=== PATIENT | female | born 1955 | race American Indian/Alaskan Native ===

== ENCOUNTER 2020-12-27 21:11 | Inpatient (IN) | payer MEDICARE ==
[2020-12-27] MEDS ORDERED: SODIUM CHLORIDE 0.9% 1000 ML 1,000 ML IV ONE (22:29)
--- NOTE | 2020-12-27 22:32 | Emergency Department Report ---
ED General Adult HPI - General Chief complaint: Syncope Stated complaint: AMS PUI?: No Time Seen by Provider: 12/27/20 21:58 Source: family, EMS ( EMS documentation not available at time of chart dictation ), RN notes reviewed Mode of arrival: Stretcher Limitations: Altered Mental Status, Physical Limitation - History of Present Illness Initial comments: The patient is a 65-year-old female. She is not known to myself previously. She is accompanied by her daughter, Ms. Anjelica Mauricio who provides the history of present illness; [id number] Past medical history: COPD, not on home oxygen, hypertension, pancreatic mass. Pulmonology: Dr. Agg[facility], Dr. Kenny As per her daughter, the patient has been weak, and failing to thrive for the past few months. She is essentially bedbound, and stationary. She reports that her outpatient gymnastics coach performed a few procedures recently, but Ms. Mauricio cannot specifically remember what was done. The patient was found facedown on the floor tonight, for uncertain duration of time, and via uncertain mechanism. The patient herself is awake, but altered, moves 4 extremities, and make some nonsensical statements. As per her daughter, the patient has had a decline in functional status over the past few months. Her daughter states that she is the patient's power of international tax manager, and that currently the patient is full code. Patient herself is not able to describe the qualitative nature of her symptoms, exacerbating factors, relieving factors, or aggravating factors. Her daughter does state that the patient has very poor oral intake, and has not really been able to eat or drink much of anything for months. -: Sudden, month(s) Severity scale (0 -10): 3 Quality: other Consistency: other Improves with: other Worsens with: other Associated Symptoms: other - Related Data Allergies Allergy/AdvReac Type Severity Reaction Status Date / Time Penicillins Allergy Swelling Verified 12/27/20 21:38 ED Review of Systems ROS: Stated complaint: AMS Other details as noted in HPI Comment: Unobtainable due to pts medical conditions Constitutional: malaise, weakness Cardiovascular: syncope Gastrointestinal: other (Not able to tolerate p.o.) Neurological: weakness, confusion ED Past Medical Hx - Past Medical History Previous Medical History?: Yes Hx Hypertension: Yes Hx COPD: Yes Additional medical history: Unknown mass on Pancreas - Surgical History Past Surgical History?: No ED Physical Exam - General Limitations: Altered Mental Status, Physical Limitation General appearance: lethargic - Head Head exam: Present: normocephalic, other (Cachectic. Wasted.) - Eye Eye exam: Present: normal appearance - ENT ENT exam: Present: mucous membranes dry - Neck Neck exam: Present: normal inspection. Absent: tenderness, meningismus - Respiratory Respiratory exam: Present: decreased breath sounds. Absent: respiratory distress, wheezes, rales, rhonchi, stridor - Cardiovascular Cardiovascular Exam: Present: normal rhythm, tachycardia, normal heart sounds. Absent: bradycardia, irregular rhythm, systolic murmur, diastolic murmur, rubs, gallop - GI/Abdominal GI/Abdominal exam: Present: soft, other (Scaphoid abdomen is noted.). Absent: distended, tenderness, guarding, rebound, rigid, pulsatile mass - Extremities Exam Extremities exam: Present: normal inspection, other (Hyperpigmentation noted. Dry skin is noted.) - Back Exam Back exam: Present: normal inspection. Absent: tenderness, CVA tenderness (R), paraspinal tenderness, vertebral tenderness - Neurological Exam Neurological exam: Present: altered (Detailed neurologic examination limited secondary to patient's encephalopathy), other (The patient is awake. The patient is moaning. patient has minimal movement of her extremities.) - Skin Skin exam: Present: warm, dry. Absent: rash ED Course Vital Signs 12/27/20 12/27/20 12/27/20 21:28 21:32 22:00 Temperature 96.7 F L Pulse Rate 109 H 106 H 110 H Respiratory 26 H 23 14 Rate Blood Pressure 106/44 [Right] O2 Sat by Pulse 100 Oximetry 12/27/20 12/27/20 12/28/20 22:56 23:00 00:10 Temperature Pulse Rate 113 H 106 H 109 H Respiratory 29 H 19 Rate Blood Pressure [Right] O2 Sat by Pulse Oximetry 12/28/20 00:56 Temperature Pulse Rate Respiratory Rate Blood Pressure 115/56 [Right] O2 Sat by Pulse Oximetry - Reevaluation(s) Reevaluation #1: 12/28/20 00:38 Differential diagnosis, including but not limited to: Dehydration, pneumonia, urinary tract infection, closed head injury. Cervical spine injury, failure to thrive, malignancy, electrolyte derangement Assessment and plan: 65-year-old female who appears to be chronically ill, wasted, emaciated, who has been weak for months as per her daughter, who is currently a full code, with complaint of fall, weakness, possible syncope. Patient hypothermic and tachycardic. Active patient rewarming started. She is reportedly allergic to penicillin, uncertain what the specific nature of her allergy is. Start patient on fluids, empiric levofloxacin, obtain CT scan of the brain and cervical spine, as well as x-ray of the chest, and pelvis. Laboratory studies have demonstrated leukocytosis, lactic acidosis, hyponatremia (likely hypovolemic hyponatremia), elevated troponin, likely a type II troponin leak (initial EKG limited by artifact, have requested repeat EKG), elevated lactic acid, which is likely a type I and type II lactic acidosis, as well as renal insufficiency. I did have an extensive discussion with the patient's daughter regarding CPR, intubation, and goals of care. Currently, she has articulated understanding to the aforementioned interventions, and has requested full CODE STATUS. The patient does not require vasopressors at this time, and she is protecting her airway. I do suspect that the patient has an undiagnosed malignancy. Patient meets criteria for admission hospitalization secondary to the aforementioned findings. Continue IV fluids, continue potassium supplementation, administer lactulose rectally for hyperammonemia, admit patient to the medical service. This was discussed with the patient's daughter, who articulated understanding. 12/28/20 00:41 CT scan of the brain and cervical spine negative for acute findings. Hospital physician, Dr. Alessandro Contreras to admit 12/28/20 01:07 Called daughters listed phone number to discuss patient's care. There was no answer, and no voicemail. ED Medical Decision Making - Lab Data Result diagrams: 12/27/20 23:35 12/27/20 23:35 Vital Signs 12/27/20 12/27/20 21:32 22:56 Temperature 96.7 F L Pulse Rate 106 H 113 H Respiratory 23 Rate Blood Pressure 106/44 [Right] O2 Sat by Pulse 100 Oximetry Lab Results 12/27/20 12/27/20 12/27/20 Range/Units 23:35 23:35 23:35 WBC 18.0 H (4.5-11.0) K/mm3 RBC 3.11 L (3.65-5.03) M/mm3 Hgb 10.1 (10.1-14.3) gm/dl Hct 29.7 L (30.3-42.9) % MCV 96 (79-97) fl MCH 32 (28-32) pg MCHC 34 (30-34) % RDW 14.0 (13.2-15.2) % Plt Count 261 (140-440) K/mm3 Seg Neutrophils % Extracting Machine Operator PT 13.4 (12.2-14.9) Sec. INR 0.96 (0.87-1.13) APTT 29.1 (24.2-36.6) Sec. Sodium 130 L (137-145) mmol/L Potassium 1.8 L* (3.6-5.0) mmol/L Chloride 76.1 L (98-107) mmol/L Carbon Dioxide 26 (22-30) mmol/L Anion Gap 30 mmol/L BUN 36 H (7-17) mg/dL Creatinine 1.8 H (0.6-1.2) mg/dL Estimated GFR 34 ml/min BUN/Creatinine Ratio 20 % Glucose 98 (65-100) mg/dL Lactic Acid (0.7-2.0) mmol/L Calcium 7.9 L (8.4-10.2) mg/dL Total Bilirubin 1.00 (0.1-1.2) mg/dL AST 38 (5-40) units/L ALT 24 (7-56) units/L Alkaline Phosphatase 90 (35-129) units/L Ammonia (25-60) umol/L Total Creatine Kinase 217 H (30-135) units/L Troponin T 0.163 H* (0.00-0.029) ng/mL Total Protein 5.0 L (6.3-8.2) g/dL Albumin 2.1 L (3.9-5) g/dL Albumin/Globulin Ratio 0.7 % TSH (0.270-4.200) mlU/mL Salicylates (2.8-20.0) mg/dL Acetaminophen (10.0-30.0) ug/mL Plasma/Serum Alcohol (0-0.07) % 12/27/20 12/27/20 12/27/20 Range/Units 23:35 23:35 23:35 WBC (4.5-11.0) K/mm3 RBC (3.65-5.03) M/mm3 Hgb (10.1-14.3) gm/dl Hct (30.3-42.9) % MCV (79-97) fl MCH (28-32) pg MCHC (30-34) % RDW (13.2-15.2) % Plt Count (140-440) K/mm3 Seg Neutrophils % PT (12.2-14.9) Sec. INR (0.87-1.13) APTT (24.2-36.6) Sec. Sodium (137-145) mmol/L Potassium (3.6-5.0) mmol/L Chloride (98-107) mmol/L Carbon Dioxide (22-30) mmol/L Anion Gap mmol/L BUN (7-17) mg/dL Creatinine (0.6-1.2) mg/dL Estimated GFR ml/min BUN/Creatinine Ratio % Glucose (65-100) mg/dL Lactic Acid 8.90 H* (0.7-2.0) mmol/L Calcium (8.4-10.2) mg/dL Total Bilirubin (0.1-1.2) mg/dL AST (5-40) units/L ALT (7-56) units/L Alkaline Phosphatase (35-129) units/L Ammonia 101.0 H (25-60) umol/L Total Creatine Kinase (30-135) units/L Troponin T (0.00-0.029) ng/mL Total Protein (6.3-8.2) g/dL Albumin (3.9-5) g/dL Albumin/Globulin Ratio % TSH 3.690 (0.270-4.200) mlU/mL Salicylates (2.8-20.0) mg/dL Acetaminophen (10.0-30.0) ug/mL Plasma/Serum Alcohol (0-0.07) % 12/27/20 12/27/20 12/27/20 Range/Units 23:35 23:35 23:35 WBC (4.5-11.0) K/mm3 RBC (3.65-5.03) M/mm3 Hgb (10.1-14.3) gm/dl Hct (30.3-42.9) % MCV (79-97) fl MCH (28-32) pg MCHC (30-34) % RDW (13.2-15.2) % Plt Count (140-440) K/mm3 Seg Neutrophils % PT (12.2-14.9) Sec. INR (0.87-1.13) APTT (24.2-36.6) Sec. Sodium (137-145) mmol/L Potassium (3.6-5.0) mmol/L Chloride (98-107) mmol/L Carbon Dioxide (22-30) mmol/L Anion Gap mmol/L BUN (7-17) mg/dL Creatinine (0.6-1.2) mg/dL Estimated GFR ml/min BUN/Creatinine Ratio % Glucose (65-100) mg/dL Lactic Acid (0.7-2.0) mmol/L Calcium (8.4-10.2) mg/dL Total Bilirubin (0.1-1.2) mg/dL AST (5-40) units/L ALT (7-56) units/L Alkaline Phosphatase (35-129) units/L Ammonia (25-60) umol/L Total Creatine Kinase (30-135) units/L Troponin T (0.00-0.029) ng/mL Total Protein (6.3-8.2) g/dL Albumin (3.9-5) g/dL Albumin/Globulin Ratio % TSH (0.270-4.200) mlU/mL Salicylates < 0.3 L (2.8-20.0) mg/dL Acetaminophen 5.0 L (10.0-30.0) ug/mL Plasma/Serum Alcohol < 0.01 (0-0.07) % - EKG Data -: EKG Interpreted by Ks - EKG Data 12/28/20 00:33 EKG limited by motion artifact. Sinus rhythm, tachycardia, rate 105 bpm. Unable to establish axis, given motion artifact. Atrial enlargement. Poor R wave progression. Nonspecific ST abnormality. Not a STEMI. 12/28/20 00:34 - Radiology Data Radiology results: pending, report reviewed, image reviewed XR pelvis 1-2V INDICATION / CLINICAL INFORMATION: fall weak. COMPARISON: None available. FINDINGS: No acute fracture. Normal alignment. Joint spaces are preserved. No destructive osseous lesion or suspicious periosteal reaction. Impression: 1.No acute fracture. Signer Name: Miguel Ángel Mcclain MD Signed: 12/27/2020 10:10 PM Workstation Name: [id number] XR chest 1V ap INDICATION / CLINICAL INFORMATION: Altered Mental Status COMPARISON: None available. FINDINGS: SUPPORT DEVICES: None. HEART / MEDIASTINUM: No significant abnormality. LUNGS / PLEURA: Lungs are clear. Costo phrenic sulci are sharp. No pneumothorax. ADDITIONAL FINDINGS: No significant additional findings. IMPRESSION: 1. No acute findings. Signer Name: Miguel Ángel Mcclain MD Signed: 12/27/2020 10:08 PM Workstation Name: [id number] XR chest 1V ap INDICATION / CLINICAL INFORMATION: Altered Mental Status RAJINDER RISON: None available. FINDINGS: SUPPORT DEVICES: None. HEART / MEDIASTINUM: No significant abnormality. LUNGS / PLEURA: Lungs are clear. Costophrenic sulci are sharp. No pneumothorax. ADDITIONAL FINDINGS: No significant additional findings. IMPRESSION: 1. No acute findings. Signer Name: Miguel Ángel Mcclain MD Signed: 12/27/2020 10:08 PM Workstation Name: [id number] CT cervical spine wo con, CT head/brain wo con INDICATION: Syncope / Weakness / Altered Mental Status. TECHNIQUE: CT head and cervical spine without contrast. All CT scans at this location are performed using CT dose reduction for ALARA by means of automated exposure control. COMPARISON: None. FINDINGS: HEAD: Intracranial: Shaver-white matter differentiation is maintained. No intracranial hemorrhage. No extra axial collection.. No hydrocephalus. No herniation. Sinuses: Paranasal sinuses and mastoid air cells are essentially clear. Orbits: Globes are intact Calvarium: No acute fracture. CERVICAL: Alignment: Normal alignment. Vertebrae: No fracture. Vertebral body heights are preserved. C1 and C2 are congruent. Atlantooccipital joint is maintained. Spondylolysis: Spondylosis most pronounced at C4-C5 and C5-C6 with associated foraminal narrowing. No high-grade osseous spinal canal stenosis at any level. Soft tissues: No prevertebral soft tissue thickening. Additional findings: Severe emphysema. IMPRESSION: 1. No acute intracranial abnormality. 2.No cervical spine fracture. 3. Severe emphysema. Signer Name: Miguel Ángel Mcclain MD Signed: 12/27/2020 11:32 PM Critical Care Time: Yes Critical care time in (mins) excluding proc time.: 35 Critical care attestation.: If time is entered above; I have spent that time in minutes in the direct care of this critically ill patient, excluding procedure time. ED Disposition Clinical Impression: SIRS (systemic inflammatory response syndrome), Dehydration, Hypokalemia, Hyponatremia, Hyperammonemia, History of syncope, Malnutrition Disposition: OP ADMIT IP TO THIS HOSP Is pt being admited?: Yes Does the pt Need Aspirin: No Condition: Serious
--- NOTE | 2020-12-27 23:12 | XRay Report ---
XR chest 1V ap INDICATION / CLINICAL INFORMATION: Altered Mental Status COMPARISON: None available. FINDINGS: SUPPORT DEVICES: None. HEART / MEDIASTINUM: No significant abnormality. LUNGS / PLEURA: Lungs are clear. Costophrenic sulci are sharp. No pneumothorax. ADDITIONAL FINDINGS: No significant additional findings. IMPRESSION: 1. No acute findings. Signer Name: Miguel Ángel Mcclain MD Signed: 12/27/2020 11:08 PM Workstation Name: [id number]
--- NOTE | 2020-12-27 23:14 | XRay Report ---
XR pelvis 1-2V INDICATION / CLINICAL INFORMATION: fall weak. COMPARISON: None available. FINDINGS: No acute fracture. Normal alignment. Joint spaces are preserved. No destructive osseous lesion or s uspicious periosteal reaction. Impression: 1.No acute fracture. Signer Name: Miguel Ángel Mcclain MD Signed: 12/27/2020 11:10 PM Workstation Name: [id number]
[2020-12-28 00:13] LABS: Hematocrit 29.7 % (30.3-42.9); Hemoglobin 10.1 gm/dl (10.1-14.3); Mean Corpuscular HGB Conc 34 % (30-34); Mean Corpuscular Volume 96 fl (79-97); Platelet Count 261 K/mm3 (140-440); Red Blood Count 3.11 M/mm3 (3.65-5.03)
[2020-12-28 00:18] LABS: Albumin 2.1 g/dL (3.9-5); Calcium 7.9 mg/dL (8.4-10.2)
[2020-12-28 00:22] LABS: INR 0.96 (0.87-1.13)
[2020-12-28] MEDS ORDERED: LACTATED RINGERS 1,000 ML IV ONE (00:22)
[2020-12-28 00:23] LABS: Partial Thromboplastin Time 29.1 Sec. (24.2-36.6)
[2020-12-28] MEDS ORDERED: LACTULOSE ENEMA 1000 ML PR STA (00:36)
--- NOTE | 2020-12-28 00:36 | Cat Scan Report ---
CT cervical spine wo con, CT head/brain wo con INDICATION: Syncope / Weakness / Altered Mental Status. TECHNIQUE: CT head and cervical spine without contrast. All CT scans at this location are performed u sing CT dose reduction for ALARA by means of automated exposure control. COMPARISON: None. FINDINGS: HEAD: Intracranial: Shaver-white matter differentiation is maintained. No intracranial hemorrhage. No extra a xial collection.. No hydrocephalus. No herniation. Sinuses: Paranasal sinuses and mastoid air cells are essentially clear. Orbits: Globes are intact Calvarium: No acute fracture. CERVICAL: Alignment: Normal alignment. Vertebrae: No fracture. Vertebral body heights are preserved. C1 and C2 are congruent. Atlantooccipi remedios joint is maintained. Spondylolysis: Spondylosis most pronounced at C4-C5 and C5-C6 with associated foraminal narrowing. No high-grade osseous spinal canal stenosis at any level. Soft tissues: No prevertebral soft tissue thickening. Additional findings: Severe emphysema. IMPRESSION: 1. No acute intracranial abnormality. 2.No cervical spine fracture. 3. Severe emphysema. Signer Name: Miguel Ángel Mcclain MD Signed: 12/28/2020 12:32 AM Workstation Name: [id number]
[2020-12-28] MEDS ORDERED: D5W/0.45% NACL 1,000 ML IV SCH (01:00)
[2020-12-28 01:07] LABS: RBC Morphology Normal; Total Cells Counted 100
[2020-12-28] MEDS: POTASSIUM CHLORIDE 10 MEQ 10 MEQ/100 ML BAG IV SCH ×3 (01:49→05:46)
[2020-12-28] MEDS ORDERED: ONDANSETRON 4 MG/2 ML INJ IV PRN (01:58)
[2020-12-28] MEDS ORDERED: MAGNESIUM HYDROXIDE (MOM) ORAL LIQD UDC PO PRN (01:58)
[2020-12-28] MEDS ORDERED: ACETAMINOPHEN 325 MG TAB PO PRN (01:58)
[2020-12-28] MEDS ORDERED: SODIUM CHLORIDE 0.9% 1000 ML 1,000 ML IV SCH (02:00)
[2020-12-28 02:10] LABS: Chol/HDL Ratio 1.73 %
--- NOTE | 2020-12-28 02:12 | History and Physical Report ---
History of Present Illness Date of examination: 12/28/20 Date of admission: 12/28/2020 Chief complaint: Generalized weakness History of present illness: 65-year-old female with significant past medical history of COPD, hypertension and pancreatic mass brought into the emergency room today because of generalized weakness, failure to thrive over the past few months who had been found to have collapsed facedown tonight for an unknown duration of time. Most of the history was gotten from the ER staff as family is not available and patient appeared altered. Work-up in the emergency room today reveals leukocytosis of 18, lactic acidosis of 8.9 and hypokalemia of 1.8. Hyperammonemia of 101, creatinine kinase of 217 and a troponin of 0.163. CT scan of the head and neck were unremarkable, chest x-ray showed no acute findings. Patient is being admitted with failure to thrive, SIRS, hypokalemia, hyperammonemia and lactic acidosis. Past History Past Medical History: COPD, hypertension, other (Unknown mass on Pancreas) Past Surgical History: No surgical history Social history: no significant social history Family history: no significant family history Medications and Allergies Allergies Allergy/AdvReac Type Severity Reaction Status Date / Time Penicillins Allergy Swelling Verified 12/27/20 21:38 Active Meds: Active Medications Acetaminophen (Acetaminophen 325 Mg Tab) 650 mg PO Q4H PRN PRN Reason: Pain MILD(1-3)/Fever >100.5/BROTHERS Heparin Sodium (Porcine) (Heparin 5,000 Unit/1 Ml Vial) 5,000 unit SUB-Q Q8HR LASHAWN Dextrose/Sodium Chloride (D5/0.45ns) 1,000 mls @ 75 mls/hr IV DIRECT LASHAWN Potassium Chloride (Kcl 10meq/100ml) 10 meq in 100 mls @ 100 mls/hr IV Q1H LASHAWN Stop: 12/28/20 04:59 Last Admin: 12/28/20 01:49 Dose: 100 mls/hr Documented by: Sodium Chloride (Nacl 0.9% 1000 Ml) 1,000 mls @ 125 mls/hr IV DIRECT LASHAWN Magnesium Hydroxide (Magnesium Hydroxide (Mom) Oral Liqd Udc) 30 ml PO Q4H PRN PRN Reason: Constipation Ondansetron HCl (Ondansetron 4 Mg/2 Ml Inj) 4 mg IV Q8H PRN PRN Reason: Nausea And Vomiting Sodium Chloride (Sodium Chloride 0.9% 10 Ml Flush Syringe) 10 ml IV BID LASHAWN Sodium Chloride (Sodium Chloride 0.9% 10 Ml Flush Syringe) 10 ml IV PRN PRN PRN Reason: LINE FLUSH Review of Systems ROS unobtainable: due to mental status Exam - Constitutional Vitals: Temp Pulse Resp BP Pulse Ox 96.7 F L 109 H 19 115/56 100 12/27/20 21:32 12/28/20 00:10 12/28/20 00:10 12/28/20 00:56 12/27/20 21:32 General appearance: Present: no acute distress, cachectic, other (Dry oral mucosa) - EENT Eyes: Present: PERRL, EOM intact. Absent: scleral icterus ENT: hearing intact, clear oral mucosa, dentition normal - Neck Neck: Present: supple, normal ROM - Respiratory Respiratory effort: normal Respiratory: bilateral: CTA - Cardiovascular Rhythm: regular Heart Sounds: Present: S1 & S2. Absent: gallop, systolic murmur, diastolic murmur, rub, click - Extremities Extremities: no ischemia, pulses intact, pulses symmetrical, No edema, Full ROM Peripheral Pulses: within normal limits - Abdominal General gastrointestinal: Present: soft, non-tender, non-distended, normal bowel sounds. Absent: mass - Integumentary Integumentary: Present: clear, warm, dry. Absent: rash - Musculoskeletal Musculoskeletal: strength equal bilaterally - Psychiatric Psychiatric: cooperative - Neurologic Neurologic: CNII-XII intact, no focal deficits, moves all extremities HEART Score - HEART Score Troponin: Troponin T 0.163 ng/mL (0.00-0.029) H* 12/27/20 23:35 Results - Labs CBC & Chem 7: 12/27/20 23:35 12/27/20 23:35 Labs: Abnormal lab results 12/27/20 12/27/20 12/27/20 Range/Units 23:35 23:35 23:35 WBC 18.0 H (4.5-11.0) K/mm3 RBC 3.11 L (3.65-5.03) M/mm3 Hct 29.7 L (30.3-42.9) % Seg Neuts % (Manual) 92.0 H (40.0-70.0) % Lymphocytes % (Manual) 5.0 L (13.4-35.0) % Seg Neutrophils # Man 16.6 H (1.8-7.7) K/mm3 Lymphocytes # (Manual) 0.9 L (1.2-5.4) K/mm3 Sodium 130 L (137-145) mmol/L Potassium 1.8 L* (3.6-5.0) mmol/L Chloride 76.1 L (98-107) mmol/L BUN 36 H (7-17) mg/dL Creatinine 1.8 H (0.6-1.2) mg/dL Lactic Acid 8.90 H* (0.7-2.0) mmol/L Calcium 7.9 L (8.4-10.2) mg/dL Ammonia (25-60) umol/L Total Creatine Kinase 217 H (30-135) units/L Troponin T 0.163 H* (0.00-0.029) ng/mL Total Protein 5.0 L (6.3-8.2) g/dL Albumin 2.1 L (3.9-5) g/dL Salicylates (2.8-20.0) mg/dL Acetaminophen (10.0-30.0) ug/mL 12/27/20 12/27/20 12/27/20 Range/Units 23:35 23:35 23:35 WBC (4.5-11.0) K/mm3 RBC (3.65-5.03) M/mm3 Hct (30.3-42.9) % Seg Neuts % (Manual) (40.0-70.0) % Lymphocytes % (Manual) (13.4-35.0) % Seg Neutrophils # Man (1.8-7.7) K/mm3 Lymphocytes # (Manual) (1.2-5.4) K/mm3 Sodium (137-145) mmol/L Potassium (3.6-5.0) mmol/L Chloride (98-107) mmol/L BUN (7-17) mg/dL Creatinine (0.6-1.2) mg/dL Lactic Acid (0.7-2.0) mmol/L Calcium (8.4-10.2) mg/dL Ammonia 101.0 H (25-60) umol/L Total Creatine Kinase (30-135) units/L Troponin T (0.00-0.029) ng/mL Total Protein (6.3-8.2) g/dL Albumin (3.9-5) g/dL Salicylates < 0.3 L (2.8-20.0) mg/dL Acetaminophen 5.0 L (10.0-30.0) ug/mL 12/28/20 Range/Units 00:53 WBC (4.5-11.0) K/mm3 RBC (3.65-5.03) M/mm3 Hct (30.3-42.9) % Seg Neuts % (Manual) (40.0-70.0) % Lymphocytes % (Manual) (13.4-35.0) % Seg Neutrophils # Man (1.8-7.7) K/mm3 Lymphocytes # (Manual) (1.2-5.4) K/mm3 Sodium (137-145) mmol/L Potassium (3.6-5.0) mmol/L Chloride (98-107) mmol/L BUN (7-17) mg/dL Creatinine (0.6-1.2) mg/dL Lactic Acid 8.90 H* (0.7-2.0) mmol/L Calcium (8.4-10.2) mg/dL Ammonia (25-60) umol/L Total Creatine Kinase (30-135) units/L Troponin T (0.00-0.029) ng/mL Total Protein (6.3-8.2) g/dL Albumin (3.9-5) g/dL Salicylates (2.8-20.0) mg/dL Acetaminophen (10.0-30.0) ug/mL Assessment and Plan - Patient Problems (1) SIRS (systemic inflammatory response syndrome) Current Visit: No Status: Acute Plan to address problem: Patient had no obvious source of infection. However she has been commenced on empiric IV antibiotics. (2) Dehydration Current Visit: No Status: Acute Plan to address problem: Patient placed on IV fluid. We will monitor chemistry. (3) History of syncope Current Visit: No Status: Acute Plan to address problem: Etiology unclear. Possibly multifactorial including dehydration, hyponatremia, hypotension. We will continue to monitor closely in the ICU. (4) Hyperammonemia Current Visit: No Status: Acute Plan to address problem: Patient has been placed on lactulose. We will monitor ammonia levels. (5) Hypokalemia Current Visit: No Status: Acute Plan to address problem: Potassium will be repleted and will monitor chemistry. (6) Hyponatremia Current Visit: No Status: Acute Plan to address problem: Possibly secondary to the dehydration. Continue on IV fluid normal saline. We will monitor chemistry. (7) Malnutrition Current Visit: No Status: Acute Plan to address problem: Dietary consult requested. (8) RACHAEL (acute kidney injury) Current Visit: Yes Status: Acute Plan to address problem: Possibly prerenal. We will continue on IV fluid hydration. Consult placed to nephrology for evaluation. (9) DVT prophylaxis Current Visit: No Status: Acute Plan to address problem: Patient placed on subcutaneous heparin. (10) Full code status Current Visit: No Status: Acute Plan to address problem: Patient is full code. Prognosis appears poor. Family requests that patient be made full code.
[2020-12-28] MEDS ORDERED: NORepinephrine/NS 4 MG-250 ML 4 MG/250 ML BAG IV ONE (03:04)
--- NOTE | 2020-12-28 04:02 | Procedure Note ---
Date of procedure: 12/28/20 Pre-op diagnosis: Cardiac arrest Post-op diagnosis: same Procedure: Patient is a 65-year-old patient is admitted to the hospital service and is being held in the ER. Patient went into cardiac arrest. CPR was started along with ACLS protocols. The primary team at bedside to go over the cardiac arrest and I will moved to intubate the patient and then place a central line. See procedure notes below. Endotracheal Intubation: Indication: Cardiac arrest A time-out was completed verifying correct patient, procedure, site, positioning. . The patient was placed in a flat position. The patient was easily ventilated using an ambu bag. The MAC 3 BLADE was used and inserted into the oropharynx at which time there was a Grade 1 view of the vocal cords. A 6.5- yi endotracheal tube was inserted and visualized going through the vocal cords. The stylette was removed. Colorimetric change was visualized on the capnography. Breath sounds were heard in both lung monroy equally. The endotracheal tube was placed at 22 cm, measured at the teeth. A chest x-ray was ordered to assess for pneumothorax and verify endotrachealtube placement. Estimated Blood Loss: none The patient tolerated the procedure well and there were no complications. Central Venous Line Placement: Indication: Cardiac arrest, intravenous access A time-out was completed verifying correct patient, procedure, site, positioning, and special equipment if applicable. The patient was placed in a dependent position appropriate for central line placement based on the vein to be cannulated. The patients rightgroin was prepped and draped in sterile fashion. An ultrasound was used in a sterile fashion to identify vasculature. A triple lumen Cordis catheter was introduced into the the common femoral vein using the Seldinger technique and under ultrasound guidance. The catheter was threaded smoothly over the guide wire and appropriate blood return was obtained. Each lumen of the catheter was evacuated of air and flushed with sterile saline. The catheter was then sutured in place to the skin and a sterile dressing applied. Perfusion to the extremity distal to the point of catheter insertion was checked and found to be adequate. Estimated Blood Loss: minimal The patient tolerated the procedure well and there were no complications. Care will be transferred back to the primary team. Estimated blood loss: minimal Pathology: none Condition: critical Disposition: ICU
[2020-12-28] MEDS ORDERED: NORepinephrine/NS 4 MG-250 ML 4 MG/250 ML BAG IV SCH (05:00)
[2020-12-28] MEDS ORDERED: HEPARIN 5,000 UNIT/1 ML VIAL SUB-Q SCH (06:00)
[2020-12-28] MEDS ORDERED: VASOPRESSIN 20 UNIT in SODIUM CHLORIDE 0.9% 100 ML IV SCH (06:00)
--- NOTE | 2020-12-28 06:11 | Event Note ---
Date: 12/28/20 GERDA العراقي called on on patient who is being scheduled for admission for SIRS, hypokalemia, hyponatremia, dehydration and syncope. Resuscitative measures were commenced according to ACLS protocol and patient had spontaneous return of circulation after about 3 rounds of epinephrine. Patient successfully intubated by the ER physician. She has been started on pressors and will be admitted into the intensive care unit. ER physician had discussed patient's condition with family regarding the poor prognosis. Family wants patient to be full code.
--- NOTE | 2020-12-28 06:26 | Event Note ---
Date: 12/28/20 GERDA العراقي called again on patient who had been coded earlier. Resuscitative measures were commenced according to ACLS protocol. Patient had 2 rounds of epi, 1 round of sodium bicarb, 1 round of calcium chloride. There was return of spontaneous circulation. Patient is being continued on IV fluid and pressors. We will continue other management which is already in place and will monitor closely in the intensive care unit.
[2020-12-28] MEDS ORDERED: SODIUM BICARB 8.4% 50 MEQ/50 ML SYRINGE IV ONE (06:50)
[2020-12-28] MEDS ORDERED: EPINEPHrine 1 MG/10 ML SYRINGE ONE (06:50)
[2020-12-28 06:53] VITALS: BP 123/64
[2020-12-28] MEDS ORDERED: POTASSIUM CHLORIDE 20 MEQ 20 MEQ/100 ML BAG IV SCH (07:00)
[2020-12-28] MEDS ORDERED: DOPamine/D5W 800 MG/250 ML 800 MG/250 ML BAG IV SCH (07:00)
--- NOTE | 2020-12-28 07:35 | Event Note ---
Date: 12/28/20 GERDA MALCOM called on 65-year-old -[place] female who had been coded twice earlier. She has been admitted for SIRS, hyponatremia, severe hypokalemia and hypotension. Resuscitative measures were commenced according to ACLS protocol however all measures proved futile. On exam: Pupils were fixed and dilated. Chest: No breath sounds Cardiovascular exam: No heart sounds and no peripheral pulses Abdomen: Soft,No masses Extremities: Cold and clammy Central nervous system: No reflexes Patient pronounced on December 28, 2020 at 7:05 AM. Attempts were made to contact family without any response.
--- NOTE | 2020-12-29 10:30 | Electrocardiograph Report ---
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
== END 2020-12-28 07:30 | DRG 70 ==
LOC: ED 21:11 → 4A 12-28 00:42 → CC1 12-28 04:35
PROVIDERS: ADMIT Internal Medicine Geriatric Medicine; ATTEND Internal Medicine Geriatric Medicine
PROC: 5A12012 Performance of Cardiac Output, Single, Manual (ICD-10-PCS; principal; 2020-12-28)
PROC: 0BH17EZ Insertion of Endotracheal Airway into Trachea, Via Natural or Artificial Opening (ICD-10-PCS; 2020-12-28)
PROC: 06HY33Z Insertion of Infusion Device into Lower Vein, Percutaneous Approach (ICD-10-PCS; 2020-12-28)
PROC: B54CZZA Ultrasonography of Left Lower Extremity Veins, Guidance (ICD-10-PCS; 2020-12-28)
PROC: 5A1935Z Respiratory Ventilation, Less than 24 Consecutive Hours (ICD-10-PCS; 2020-12-28)
DX: G93.41 Metabolic encephalopathy (principal); E43 Unspecified severe protein-calorie malnutrition; J96.01 Acute respiratory failure with hypoxia; R65.11 Systemic inflammatory response syndrome (SIRS) of non-infectious origin with acute organ dysfunction; N17.9 Acute kidney failure, unspecified; E87.1 Hypo-osmolality and hyponatremia; E72.20 Disorder of urea cycle metabolism, unspecified; E87.2 Acidosis; E46 Unspecified protein-calorie malnutrition; I46.9 Cardiac arrest, cause unspecified; E86.0 Dehydration; E87.6 Hypokalemia; J44.9 Chronic obstructive pulmonary disease, unspecified; I10 Essential (primary) hypertension; R62.7 Adult failure to thrive; Z88.0 Allergy status to penicillin; Z87.898 Personal history of other specified conditions; Z74.01 Bed confinement status
CPT/HCPCS: 36415; 70450; 71045; 72125; 72170; 80053; 80061; 80320; 82140; 82550; 82805; 83735; 84443; 84484; 85007; 85025; 85610; 85730; 86850; 86900; 86901; 87040; 87070; 87205; 93005; 94002; 94003; 96361; 96365; 96366; 96368; G0378; G0480; J0171; J1265; J1956; J3480; J7120